=== PATIENT | female | born 1990 | race Caucasian/White ===

== ENCOUNTER → 2020-12-27 | Outpatient (CLI) | payer OTHER | END | disposition home or self-care (01) | LOC: MAMO-SONO 07:15 → SONOGRAMA 07:38 | PROVIDERS: ATTEND Obstetrics & Gynecology Obstetrics | DX: R10.2 Pelvic and perineal pain (principal) ==

== ENCOUNTER 2021-04-22 08:04 | Outpatient (CLI) | payer OTHER | END 2021-04-22 08:30 | disposition home or self-care (01) | LOC: SONOGRAMA 08:04 → MAMO-SONO 08:15 → SONOGRAMA 08:30 | PROVIDERS: ATTEND Obstetrics & Gynecology Obstetrics | DX: R10.2 Pelvic and perineal pain (principal); N83.00 Follicular cyst of ovary, unspecified side ==